=== PATIENT | female | born 1965 | race African-American/Black ===

== ENCOUNTER 2019-04-20 19:29 | Inpatient (IN) ==
[2019-04-20] MEDS ORDERED: ASPIRIN PO ONE ×2 (19:36→22:58)
[2019-04-20 20:23] LABS: BASO# 0.02 X1000 (0.0-0.2); BASO% 0.4 % (0.0-0.8); EOS# 0.17 X1000 (0.0-0.7); EOS% 3.8 % (0.0-10.0); LYMPH% 55.9 % (20.5-51.1); MCH 27.9 PG (27-31); MCHC 32.4 g/dL (33-37); MONO# 0.32 X1000 (0.11-0.59); MONO% 7.2 % (1.7-9.3); MPV 9.6 FL (7.4-10.4); NEUT# 1.46 X1000 (1.4-6.5); NEUT% 32.7 % (42.2-75.2); PLT 254 X1000 (130-400); RDW 13.3 % (11.5-14.5); WBC 4.47 X1000 (4.8-10.8)
--- NOTE | 2019-04-20 20:26 | Diag Imaging Result Doc PS360 ---
EXAM: CHEST-2 VIEWS - 04/20/2019 HISTORY: chest pain TECHNIQUE: Chest two views COMPARISON: 04/22/2016 FINDINGS: Heart size appears borderline enlarged and stable. There is a 1.3 cm nodular density at the lateral right upper lobe which is stable. The lungs otherwise appear clear. There is no pleural effusion or pneumothorax identified. There is mild thoracic spondylosis noted. IMPRESSION: Stable borderline cardiomegaly. Stable 1.3 cm nodular density at right upper lobe. No acute changes. Electronically signed by Jad Fraire 04/20/2019 8:23 PM
[2019-04-20] MEDS ORDERED: CATAPRES PO ONE (20:41)
[2019-04-20 20:42] LABS: ALBUMIN 4.2 g/dL (3.5-5.0); CALCIUM 9.3 mg/dL (8.8-10.2); CREATININE 1.1 mg/dL (0.5-0.9); TOTAL BILIRUBIN 0.2 mg/dL (0.20-1.00); TOTAL PROTEIN 7.8 g/dL (6.3-8.3)
[2019-04-20 20:44] LABS: INR 0.87; PROTIME 12.3 Seconds (11.0-16.0)
[2019-04-20 20:45] LABS: PTT 31.1 Seconds (22.3-41.8)
[2019-04-20] MEDS ORDERED: APRESOLINE IV ONE (21:34)
--- NOTE | 2019-04-20 23:39 | PROVIDER DOCUMENTATION ---
This chart was entered by Nighat Ellis Scribe, acting as scribe for Cele Mixon DO. HPI-Chest Pain - General Chief Complaint: Chest Pain Stated Complaint: CHEST PAIN Time Seen by Provider: 04/20/19 19:58 Source: patient Allergies/Adverse Reactions: Patient Allergies Allergy/AdvReac Type Severity Reaction Status Date / Time No Known Allergies Allergy Verified 04/20/19 20:31 Home Medications: Home Medication List Medication Instructions Recorded Confirmed Last Taken Type Losartan/Hydrochlorothiazide 100 mg PO DAILY 09/25/14 04/20/19 09/25/14 08:00 History [Hyzaar 100-12.5 Tablet] Insulin Degludec [Tresiba 60 units SQ QAM 04/26/16 04/20/19 Unknown History Flextouch U-200] Potassium Chloride 10 meq PO DAILY 09/22/17 04/20/19 Unknown History Metformin HCl 1,000 mg PO BID 11/17/17 04/20/19 Unknown History Naproxen [Naprosyn] 500 mg PO BID #20 tab 03/25/18 04/20/19 Unknown Rx Aspirin 1 tab PO DAILY 04/20/19 04/20/19 Unknown History Furosemide 1 tab PO DAILY 04/20/19 04/20/19 Unknown History Amlodipine [Norvasc] 5 mg PO DAILY #30 tab 04/21/19 Unknown Rx - History of Present Illness-CP Nature of Presenting Problem: Pt is a 53 yof who presents to the ED with a cc of chest pain and sinus congestion. Pt states that she was seen by her pcp today. Pt states that she took tylenol and cold meds. 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 Pt denies any chest pain kady or SOB. Pt denies any cardiac hx. Pt does not present to the ED with any other complaints. Chest Pain Radiation: reports: no radiation Quality of Pain: reports: none Onset/Duration: just prior to arrival Timing: gone now Context/Activities at Onset: reports: none Modifying Factors: improves with: nothing Associated Symptoms: reports: denies symptoms Nitro Today/Relief: no nitro taken today Aspirin Treatment Today: no aspirin today Prior Chest Pain/Cardiac Workup: reports: no prior chest pain Similar Symptoms Previously?: No Recently Seen Here or By Another Healthcare Provider: Yes Review of Systems - Adult - REVIEW OF SYSTEMS - ADULT Constitutional: reports: see HPI Eyes: reports: no symptoms reported Ears, Nose, Mouth & Throat: reports: see HPI, sinus problem Cardiovascular: reports: see HPI, chest pain (earlier not kady) Respiratory: reports: no symptoms reported Gastrointestinal: reports: no symptoms reported Genitourinary: reports: no symptoms reported Musculoskeletal: reports: no symptoms reported Integumentary: reports: no symptoms reported Neurological: reports: no symptoms reported Psychiatric: reports: no symptoms reported Endocrine: reports: no symptoms reported Hematologic/Lymphatic: reports: no symptoms reported Allergic/Immunologic: reports: no symptoms reported All Other Systems: Reviewed and Negative (High BP) Past History - Adult - PAST MEDICAL HISTORY-ADULT Review of Records: reports: Old Records Reviewed Major Childhood Illnesses: reports: denies history Cardiovascular: reports: HTN Respiratory: reports: denies history Gastrointestinal: reports: denies history Obstetrical/Gynecological: reports: denies history Genitourinary: reports: denies history Musculoskeletal: reports: denies history Neurological: reports: denies history Endocrine/Immune: reports: Diabetes Other Conditions: reports: denies history - PRIOR SURGERIES/PROCEDURES Surgical/Procedure History: reports: hysterectomy - IMMUNIZATION STATUS Childhood Immunizations: See Nurse Assessment Flu Vaccine: See Nurse Assessment - FAMILY HISTORY Family History: reviewed, not pertinent - SOCIAL HISTORY Smoking: non-smoker Substance Use: denies Living Situation: family Physical Exam-General - PHYSICAL EXAM-ADULT Initial Vital Signs Reviewed: Yes - CONSTITUTIONAL General Appearance: alert, no apparent distress - EYES Eyes: PERRL/EOMI, pink conjunctivae - HEAD, EARS, NOSE, MOUTH & THROAT HENMT: normocephalic/atraumatic, moist mucous membranes - RESPIRATORY Respiratory: chest non-tender, lungs clear, normal breath sounds, no pleuratic chest pain, no respiratory distress, no accessory muscle use. negative: crackles, rhonchi - CARDIOVASCULAR Cardiovascular: normal peripheral pulses, regular rate, rhythm, no edema, no gallop, no JVD, no murmur. negative: bradycardia, tachycardia - MUSCULOSKELETAL Extremity: normal inspection - SKIN Integumentary: normal color, normal turgor, warm/dry. negative: ecchymosis, erythema - NEUROLOGIC Neurologic: grossly normal - PSYCHIATRIC Psych/Mental Status: normal mood/affect, normal thought content, normal thought process, oriented x 3 - HEART Score HEART Score: History: Moderately Suspicious HEART Score: ECG: Non-Specific Repolarization Disturbance/LBBB/PM HEART Score: Age: 45-65 Years HEART Score: Risk Factors for Atherosclerotic Disease: > or = 3 Risk Factors or History of Atherosclerotic Disease HEART Score: Troponin: 1-3x Normal Limit Total HEART Score:: 6 Progress - PLAN OF CARE/RESULTS Result Diagrams: 04/20/19 20:03 04/20/19 20:03 - REASSESSMENT Reassessment #1 Time Reassessed: 22:51 Status: unchanged Departure - Departure Condition: Stable Attestation - Physician/ ANNI Attestation Patient care was provided by Advanced Practice Provider:: No The physician spent face to face time with patient:: Yes Advanced Practice Provider documentation review:: Supervising physician onsite and consulted in the evaluation and care of this patient. The physician did have a face to face encounter with the patient. This chart was documented by the indicated scribe, (Nighat Ellis Scribe) and accurately reflects the services I performed and decisions made by , Cele Mixon DO, as attested by the provider's signature.
--- NOTE | 2019-04-21 02:03 | EKG Report ---
Test Performed on : 04/20/2019 10:20:10 PM Test Reason : chest pain Blood Pressure : / mmHG Vent. Rate : 082 BPM Atrial Rate : 082 BPM P-R Int : 154 ms QRS Dur : 128 ms QT Int : 398 ms P-R-T Axes : 063 -19 -03 degrees QTc Int : 464 ms Normal sinus rhythm. Right bundle branch block Abnormal ECG When compared with ECG of 20-APR-2019 19:59, (Unconfirmed) No significant change was found Unconfirmed Result
--- NOTE | 2019-04-21 02:05 | EKG Report ---
Test Performed on : 04/20/2019 7:59:06 PM Test Reason : chest pain Blood Pressure : / mmHG Vent. Rate : 083 BPM Atrial Rate : 083 BPM P-R Int : 154 ms QRS Dur : 126 ms QT Int : 404 ms P-R-T Axes : 063 -29 006 degrees QTc Int : 474 ms Normal sinus rhythm. Right bundle branch block Minimal voltage criteria for LVH, may be normal variant Abnormal ECG When compared with ECG of 22-DEC-2010 06:05, Right bundle branch block is now present Unconfirmed Result
[2019-04-21] MEDS ORDERED: APRESOLINE IV ONE (04:51)
[2019-04-21] MEDS ORDERED: LEXISCAN ONE (10:00)
[2019-04-21] MEDS ORDERED: COZAAR PO SCH (10:00)
[2019-04-21] MEDS ORDERED: HYDROCHLOROTHIAZIDE PO SCH (10:00)
[2019-04-21] MEDS ORDERED: NAPROSYN PO SCH (10:00)
[2019-04-21] MEDS ORDERED: LASIX PO SCH (10:00)
[2019-04-21] MEDS ORDERED: GLUCOPHAGE PO SCH (10:00)
[2019-04-21] MEDS ORDERED: KLOR-CON PO SCH (10:00)
[2019-04-21] MEDS ORDERED: APRESOLINE IV PRN (10:04)
[2019-04-21] MEDS ORDERED: LANTUS INSULIN SUBQ SCH (11:00)
--- NOTE | 2019-04-21 12:29 | HISTORY AND PHYSICAL ---
PRIMARY CARE PHYSICIAN: Dr. Romel Farley. CHIEF COMPLAINT: Increased blood pressure after taking some sinus medication. HISTORY OF PRESENTING ILLNESS: This is a 53-year-old female, who presents to [facility] ER with complaints of an elevated blood pressure after she had taken some Tylenol and cold medicine over the counter. Denies any chest pain. When she arrived, her blood pressure was 186/91, then a couple hours later went up to 200/112, currently is down to 176/103. She is being admitted for further evaluation and treatment. PAST MEDICAL HISTORY: Diabetes type 2, arthritis, hypertension. PAST SURGICAL HISTORY: Hysterectomy. FAMILY HISTORY: Reviewed and noncontributory. SOCIAL HISTORY: She currently lives alone. Denies any tobacco, alcohol or illicit drug use. ALLERGIES: She has no known drug allergies. HOME MEDICATIONS: She takes aspirin 81 mg p.o. daily, Lasix 21 mg p.o. daily, Tresiba 60 units subcutaneous q.a.m., Hyzaar 100/12.5 100 mg p.o. daily, metformin 1000 mg p.o. b.i.d., naproxen 500 mg p.o. b.i.d., and potassium 10 mEq p.o. daily. LABORATORY DATA: Showed a white blood cell count of 4.47, hemoglobin 12, hematocrit 37, platelets 254. PT and INR of 12.3 and 0.87. Sodium 140, potassium 4, chloride 102, CO2 26. BUN of 21, creatinine 1.1, glucose 242. Creatine kinase of 153. Troponin-T high sensitivity of 26 on the first, 21 on the second set. IMAGING STUDIES: Chest x-ray showed a stable border line cardiomegaly. A stable 1.3 cm nodular density in the right upper lobe, and no acute changes. EKG showed normal sinus rhythm at 83. REVIEW OF SYSTEMS: She denied any fever, chills, blurred vision, dizziness, chest pain, coughing, shortness of breath. She did have some sinus pressure to the frontal maxillary area. Denied any abdominal pain, constipation, diarrhea, burning or hurting with urination. PHYSICAL EXAMINATION: VITAL SIGNS: On arrival she had a temperature of 97.8 degrees, pulse 85, respirations 18, blood pressure 186/91, satting 96% on room air. About 2 hours later, her blood pressure went up to 200/112, currently down to 176/103. GENERAL: This is a 53-year-old female, who is lying in the bed and answers questions appropriately. HENT: Normocephalic, atraumatic. Normal ENT inspection. Oropharynx and nares are clear. EYES: Pupils are equal, round, reactive to light and accommodation. Extraocular movements are intact. NECK: Normal inspection. Normal range of motion. LUNGS: Clear to auscultation bilaterally with equal lung expansion and chest wall movement. HEART: With regular rate and rhythm. No murmurs, rubs, or gallops. ABDOMEN: Soft, nontender, nondistended. Bowel sounds are present x4 quadrants. MUSCULOSKELETAL: Had 5/5 strength x4 extremities. NEUROLOGICAL: The cranial nerves 2-12 appear grossly intact. ASSESSMENT: 1. Accelerated hypertension secondary to sinus medication. 2. Diabetes type 2. PLAN: She has been admitted. We will place on a healthy heart diet. Continue home medications. We will monitor her blood pressure; if it comes down later this afternoon, she can possibly be discharged home, but will continue to monitor closely. I am going to give her some hydralazine 10 mg IV q. 4 hours p.r.n. for a systolic greater than 190, diastolic greater than 100. Dictated by RAZIA Sahu for Thony Steward MD cc: RAZIA Sahu MD Micah A. Howard, MD
[2019-04-21] MEDS ORDERED: ZOFRAN IV PRN (12:51)
--- NOTE | 2019-04-21 14:48 | Diag Imaging Result Document ---
PROCEDURE NAME: MYOCARDIAL PERF SCAN, STR/REST - 04/21/2019 INTERPRETING PHYSICIAN: Vikas Mckeon MD. LEXISCAN CARDIOLITE STRESS TEST: FINDINGS: Lexiscan was infused per standard protocol. There was no chest pain. Stress electrocardiogram was negative for ischemia. Baseline electrocardiogram revealed normal sinus rhythm, right bundle branch block, left axis deviation. Cardiolite was injected, 13.7 mCi of Cardiolite was injected for the rest phase; 39.7 mCi of Cardiolite was injected for the stress phase. Gated SPECT images were obtained in standard views. Images revealed significant chest wall and diaphragmatic attenuation. Normal left ventricular cavity size. Normal myocardial perfusion. Left ventricular ejection fraction 71%. CONCLUSIONS: 1. No chest pain. 2. Negative Lexiscan stress electrocardiogram. 3. Normal myocardial perfusion. 4. Left ventricular ejection fraction of 71%. cc: MD Cindy Jones CRNP
[2019-04-21 15:53] VITALS: BP 172/86
--- NOTE | 2019-04-21 17:20 | EKG Report ---
Test Performed on : 04/21/2019 1:55:27 PM Test Reason : HTN Blood Pressure : / mmHG Vent. Rate : 079 BPM Atrial Rate : 079 BPM P-R Int : 152 ms QRS Dur : 128 ms QT Int : 442 ms P-R-T Axes : 057 -30 025 degrees QTc Int : 506 ms Normal sinus rhythm. Left axis deviation Right bundle branch block Minimal voltage criteria for LVH, may be normal variant Abnormal ECG When compared with ECG of 20-APR-2019 22:20, (Unconfirmed) No significant change was found Confirmed by Joe Diaz MD ([id number]) on 04/22/2019 7:32:57 AM
--- NOTE | 2019-04-21 20:11 | HISTORY AND PHYSICAL ---
ADDENDUM: Patient seen and examined by myself. Full note dictated and discussed with nurse practitioner. Patient presented to the hospital with elevated blood pressure of 201/116. She did take some decongestants at home, and this is very likely the cause of her elevations in her blood pressures. Her chest pain has actually resolved as her blood pressures have improved. We are going to admit her to the hospital, and we will follow her blood pressures. Discussed with her the importance of not taking any type of decongestants at home and to ask the pharmacy before she buys [id number] medications. cc: Thony Steward MD
--- NOTE | 2019-04-22 04:09 | DISCHARGE SUMMARY ---
ADMISSION DATE: 04/20/2019 DISCHARGE DATE: 04/21/2019 DISCHARGE DIAGNOSES: 1. Chest pain, resolved. Stress test was normal. 2. Hypertension, still elevated. 3. Diabetes. CONSULTATIONS: None. PROCEDURES: Cardiolite GXT negative with an EF of 71%. BRIEF HOSPITAL COURSE: The patient is a very pleasant 53-year-old female who presented to the hospital secondary to elevated blood pressures and chest pain. Thankfully, this all improved. On discharge, she is awake, alert. She is in no distress and therefore she will be discharged home. DISPOSITION: We did add Norvasc 5 mg to her blood pressure regimen. She will be discharged home. She will follow up outpatient with treatment facility of choice. cc: Thony Steward MD
[2019-04-22] MEDS ORDERED: ASPIRIN PO SCH (09:00)
== END 2019-04-21 20:14 | disposition home or self-care (01) | DRG 305 ==
LOC: P.ED 19:29 → SUATTDRO 19:30 → EDIPHOLD 04-21 07:12
PROVIDERS: ATTEND Family Medicine